=== PATIENT | male | born 1950 | race Caucasian/White ===

== ENCOUNTER → 2018-04-28 | Outpatient (CLI) | payer OTHER ==
--- NOTE | 2018-04-30 08:37 | CPEKG ---
Test Reason : PREOP Blood Pressure : / mmHG Vent. Rate : 050 BPM Atrial Rate : 050 BPM P-R Int : 204 ms QRS Dur : 084 ms QT Int : 436 ms P-R-T Axes : 022 -26 022 degrees QTc Int : 398 ms SINUS RHYTHM Confirmed by Eliud Rowe ([id number]) on 04/30/2018 8:37:15 AM Referred By: Confirmed By:Eliud Rowe
== END ==
LOC: FPAT 10:43
PROVIDERS: ATTEND Neurological Surgery
DX: Z01.810 Encounter for preprocedural cardiovascular examination (principal)

== ENCOUNTER 2018-05-13 07:30 | Inpatient (IN) | payer OTHER ==
[2018-04-28 11:15] LABS: PLATELET COUNT 255 10^3/uL (150-400)
--- NOTE | 2018-05-13 06:51 | PDHPUP ---
History & Physical Update H&P update statement: This history and physical update is based on an assessment of the patient which was completed after admission or registration (within 24 hours), but prior to the surgery/procedure. H&P update: H&P reviewed & patient examined, no change in patient's condition since H&P completed
[2018-05-13] MEDS ORDERED: ceFAZolin 2 GM/DEXTROSE 100 ML IV ONE (10:41)
[2018-05-13] MEDS ORDERED: GABAPENTIN 300 MG CAP PO ONE (10:41)
[2018-05-13] MEDS ORDERED: ACETAMINOPHEN 500 MG TAB PO ONE (10:41)
[2018-05-13] MEDS ORDERED: LIDOCAINE 1% 2 ML INJ ID PRN (10:42)
[2018-05-13] MEDS ORDERED: LR 1,000 ML IV ONE (10:42)
[2018-05-13] MEDS ORDERED: EPINEPHrine 1 MG/ML INJ ONE (11:56)
[2018-05-13] MEDS ORDERED: BACITRACIN 50,000 UNITS/10 ML SYR IRR ONE (11:56)
[2018-05-13] MEDS ORDERED: THROMBIN (BOVINE) 5,000 UNIT VIAL TP ONE (11:56)
[2018-05-13] MEDS ORDERED: CHLORHEXIDINE GLUC HIBICLENS 118 ML BTL TP ONE (11:56)
[2018-05-13] MEDS ORDERED: BUPIVACAINE 0.25% 30 ML SDV ONE (11:56)
[2018-05-13] MEDS ORDERED: MIDAZOLAM 2 MG/2 ML VIAL IVP ONE (12:36)
[2018-05-13] MEDS ORDERED: MIDAZOLAM 2 MG/2 ML VIAL ONE (12:36)
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
[2018-05-13] MEDS ORDERED: fentaNYL 100 MCG/2 ML INJ ONE ×3 (12:39→16:30)
[2018-05-13] MEDS ORDERED: ROCURONIUM 50 MG/5 ML VIAL ONE (12:39)
[2018-05-13] MEDS ORDERED: HYDROmorphONE/DILAUDID 2 MG/ML INJ ONE (12:39)
[2018-05-13] MEDS ORDERED: PROPOFOL 200 MG/20 ML VIAL ONE (12:40)
[2018-05-13] MEDS ORDERED: ALBUTEROL 60 PUFFS/8 GM MDI IH PRN (12:41)
[2018-05-13] MEDS ORDERED: CETIRIZINE 10 MG TAB PO PRN (12:41)
[2018-05-13] MEDS ORDERED: FLUTICASONE HFA 220 MCG MDI IH PRN (12:41)
[2018-05-13] MEDS ORDERED: POLYETHYLENE GLYCOL 3350 17 GM PKT PO PRN (12:43)
[2018-05-13] MEDS ORDERED: MAGNESIUM HYDROXIDE 30 ML UDCUP PO PRN (12:43)
[2018-05-13] MEDS ORDERED: METHOCARBAMOL 750 MG TAB PO PRN (12:43)
[2018-05-13] MEDS ORDERED: oxyCODONE IR 5 MG TAB PO PRN (12:43)
[2018-05-13] MEDS ORDERED: ONDANSETRON DISINTEGRATING 4 MG TAB PO PRN (12:43)
[2018-05-13] MEDS ORDERED: LACTULOSE 20 GM/30 ML UDCUP PO PRN (12:43)
[2018-05-13] MEDS ORDERED: diphenhydrAMINE 25 MG CAP PO PRN (12:43)
[2018-05-13] MEDS ORDERED: BISACODYL 10 MG SUPP PR PRN (12:43)
[2018-05-13] MEDS ORDERED: ONDANSETRON 4 MG/2 ML VIAL IVP PRN ×2 (12:43→14:12)
[2018-05-13] MEDS ORDERED: BUPIVACAINE 0.5% 30 ML SDV ONE (13:06)
[2018-05-13] MEDS ORDERED: MEPERIDINE 25 MG/0.5 ML AMP IVP PRN (14:12)
[2018-05-13] MEDS ORDERED: DIAZEPAM 5 MG/ML 1 ML SYR IVP PRN (14:12)
[2018-05-13] MEDS ORDERED: HYDROmorphONE/DILAUDID 2 MG/ML INJ IVP PRN (14:12)
[2018-05-13] MEDS ORDERED: PROMETHAZINE HCL 25 MG/ML INJ IVP PRN (14:12)
[2018-05-13] MEDS ORDERED: HYDROCODONE/APAP 5/325 TAB PO PRN (14:12)
[2018-05-13] MEDS ORDERED: NALOXONE HCL 0.4 MG/ML INJ IVP PRN (14:12)
--- NOTE | 2018-05-13 14:31 | PDMN ---
Medical Necessity [place] [facility] [place] for pt > 65yrs. OP: ACDF C3-4, C4-5
[2018-05-13] MEDS ORDERED: ONDANSETRON 4 MG/2 ML VIAL ONE (16:11)
[2018-05-13] MEDS ORDERED: DEXAMETHASONE 4 MG/ML VIAL ONE (16:11)
[2018-05-13] MEDS ORDERED: ePHEDrine SULFATE 25 MG/5 ML SYR ONE (16:11)
--- NOTE | 2018-05-13 16:25 | POSTANESTH ---
Post Anesthetic Evaluation Cardiovascular Status: Normal, Stable Respiratory Status: Normal, Stable Level of Consciousness/Mental Status: Can Participate in Eval Pain Control: Adequate, Prn Tx Ordered Nausea/Vomiting Control: Adequate, Prn Tx Ordered Complications Possibly Related to Anesthesia: None Noted
--- NOTE | 2018-05-13 16:25 | POSTOPPROG ---
Post Op Note Date of Operation: 05/13/18 Surgeon: Nicole Casas Machine Pie Maker: BJORN Wright Anesthesiologist: Manuel Anesthesia: GET(General Endotracheal), Local (Specify) Pre-op Diagnosis: cervical stenosis Post-op Diagnosis: cervical stenosis C34 and C45 Indication: myelopathy, stenosis Procedure: ACDF C3-C5 Findings: none Inf/Abcess present in the surg proc area at time of surgery?: No Depth: Deep Incisional (Fascial) EBL: 50-100 Total fluids administered: see anesthesia record Complications: none
--- NOTE | 2018-05-13 16:29 | SOAPPROG ---
SOAP Progress Note Assessment/Plan: Post Op Visit: S: Awake and alert. NAD. Pt with expected neck pain O: AFVSS/PERRLA/EOMI no droop CN 2-12 grossly intact +lt touch 5/5 BUE/BLE = CDI neck soft and supple A/P: 68 yo male that is s/p ACDF C3-C5 -PT/OT/ST -collar as directed -pt seen by Dr Casas as well -call with any questions or concerns -xrays in am 05/13/18 16:29 Objective: Vital Signs Temp Pulse Resp BP Pulse Ox 36.4 C 53 L 9 L 150/90 H 97 05/13/18 16:15 05/13/18 12:37 05/13/18 16:21 05/13/18 16:21 05/13/18 16:21 Laboratory Results 04/28/18 11:02 ICD10 Worksheet Patient Problems: Problems Problem Status Onset Arthrodesis status Acute Cervical spinal stenosis Acute Neck pain Acute - ICD10 Problem Qualifiers (1) Neck pain (2) Cervical spinal stenosis (3) Arthrodesis status
[2018-05-13] MEDS: fentaNYL 100 MCG/2 ML INJ IVP PRN ×2 (16:32→16:43)
[2018-05-13] MEDS ORDERED: oxyCODONE IR 5 MG TAB ONE (16:35)
[2018-05-13] MEDS: HYDROmorphONE/DILAUDID 1 MG/ML INJ IVP PRN (17:09)
[2018-05-13] MEDS: NS 1,000 ML IV SCH (17:10)
[2018-05-13] MEDS: GABAPENTIN 300 MG CAP PO SCH ×2 (19:08→21:31)
[2018-05-13] MEDS: ACETAMINOPHEN 500 MG TAB PO SCH ×2 (19:08→21:31)
[2018-05-13] MEDS: FAMOTIDINE 20 MG TAB PO SCH (21:31)
[2018-05-13] MEDS: SENNOSIDES/DOCUSATE SODIUM TAB PO SCH (21:31)
[2018-05-13] MEDS: ATORVASTATIN CALCIUM 40 MG TAB PO SCH (21:31)
[2018-05-13] MEDS: ceFAZolin 2 GM/DEXTROSE 100 ML IV SCH (21:57)
[2018-05-14] MEDS: HYDROmorphONE/DILAUDID 1 MG/ML INJ IVP PRN (03:37)
[2018-05-14] MEDS: ceFAZolin 2 GM/DEXTROSE 100 ML IV SCH (04:06)
[2018-05-14] MEDS: ACETAMINOPHEN 500 MG TAB PO SCH ×3 (05:36→20:43)
[2018-05-14] MEDS: GABAPENTIN 300 MG CAP PO SCH (05:37)
--- NOTE | 2018-05-14 06:11 | GOP ---
DATE OF OPERATION: 05/13/2018 SURGEON: Howie Casas MD NEUROSURGEON: Howie Casas MD TRUSS PULLER HELPER: Tobin Wright PA-C PREOPERATIVE DIAGNOSIS: Cervical stenosis with myelopathy, ataxia. POSTOPERATIVE DIAGNOSIS: Cervical stenosis with myelopathy, ataxia. PROCEDURE PERFORMED: Anterior cervical diskectomy with decompression and fusion C3-4, C4-5 (30488, 2 0282); anterior cervical instrumentation C3, C4, C5 (85638); placement of biomechanical intervertebra l device C3-4, C4-5 (80047 x2); microscope; same incision bone graft harvest. FINDINGS: SPECIMENS: None. ESTIMATED BLOOD LOSS: 50 cc. INDICATIONS: The patient is a mature gentleman who I have known for some time who has a long history of spinal stenosis, who became increasingly symptomatic with increasing difficulty with gait. An MR I demonstrated evidence of severe spinal stenosis at C3-4 and moderate to severe stenosis at C4-5, an d I suggested 2-level ACDF. He also had severe disk degenerative diseases at C5-6, C6-7, more mild t o moderate compressive pathology at those levels, but it did not, in my view, warrant surgery. The r isks of adjacent segment disease, pseudoarthrosis, swallowing dysfunction, dysphagia, hoarseness, jose or vascular injury, nerve injury were discussed. He knew he may require additional spine surgery in the future. He knew there was risk of esophageal injury. He wanted to proceed despite the risks. DESCRIPTION OF PROCEDURE: The patient was taken to the operating room, placed in supine position. G eneral anesthesia was begun. A midline shoulder roll was placed. Care was taken to pad all points o f contact. His arms were draped at his sides. He was sterilely prepped and draped in usual fashion. A localizing x-ray was taken. We made a transverse incision on the right side of the neck in the m ost rostral neck crease adjacent to the hyoid bone. The subcutaneous tissue was dissected using Bovi e cautery through the platysma, but we then used a combination of sharp and some blunt dissection med ial to the sternocleidomastoid and lateral to the strap muscles down to the prevertebral space. Ther e was a large amount of connective neurovascular tissue bridging our approach down to this area, and we went caudal to this and easily found the prevertebral space down at the C5-6 level. We really did not have good access to the C3-4, C4-5 space through that approach, but we were forced rostral by th ole neurovascular tissues at about the same level of the hyoid. We then went rostral to this and fou nd another window rostral of all these tissues and entered the prevertebral space relatively straight forward in this location and shot a local localizing x-ray. We then dissected the longus colli musc les off the spine at C3-4, C4-5. We placed a self-retaining tractor, placed distraction pins at C3-4 , distracted at C3-4; and then under the microscope we removed the C3-4 disk and drilled and harveste d subchondral bone for autologous grafting purposes. There was a large posterior bone ridge coming o ff the C3 vertebral body protruding in the canal. We drilled all this away and harvested it for auto logous grafting purposes. We opened the posterior longitudinal ligament, decompressed the thecal sac and the neural foramen on each side, got a great decompression. We chose a 7 mm implant, packed it with bone autograft, inserted at C3-4. We then removed our distraction pin at C4-5, distracted there , and did likewise. We removed the disk, drilled out the cartilaginous endplates. We drilled and newman rvested a large amount of subchondral bone. We opened the PLL, decompressed the thecal sac and the n eural foramen on each side. We then packed our intervertebral device with bony autograft and inserte d it at C4-5. A nice fit was obtained, and shot an x-ray of both of the devices. Motor evoked poten tials were checked; these were stable. We then chose a 41 mm plate; placed a screw at C3, C4, and C5 ; shot an x-ray confirming the position of the plate, and I was very happy with it. We then placed t he remaining screws in the plate and locked them according to company specification and verified this with people in the room. We achieved meticulous hemostasis, shot our final x-ray, and then placed 1 0 cc of the prevertebral study drug into the prevertebral space, and then closed the platysma with in terrupted Vicryl sutures. The skin was reapproximated with interrupted Vicryl sutures. The patient was reversed from anesthesia, extubated, and transferred to recovery room in stable condition. There were no complications. COMPLICATIONS: None. INSTRUMENT USED: [employer]tronic Zevo plate and an anatomic PTC cage, 7 mm cages, and a 41 mm plate. /[id number]/MODL
[2018-05-14] MEDS: NS 1,000 ML IV SCH (06:58)
--- NOTE | 2018-05-14 07:59 | NEUSURGPN ---
Date of Surgery: 05/13/18 Post Op Day: 1 Assessment/Plan: Assessment: 68 yo male that is s/p ACDF C3-4, C4-5 for cervical stenosis with myelopathy POD#1 Plan: -PT/OT/ST -Patient having some difficulty with swallowing, will have ST eval and treat -Wear collar at all times -Post op xrays pending -Patient discussed with Dr Casas who will also see today Please call neurosurgery with any questions/concerns Subjective: Trouble swallowing, sore trap muscles Objective: AxO x3 CN 2-12 grossly intact BUE 5/5, BLE 5/[address] Dressing scant drainage Neuro Check Frequency: per routine Urinary Catheter in Place: No - Physician Discussed Patient with Dr.: Augusto Patient Seen by : Augusto Neurosurgery Physical Exam - Vitals, I&O, Labs I and O 05/13/18 05/14/18 05/15/18 05:59 05:59 05:59 Intake Total 2509 Output Total 655 Balance 1854 Weight 76.9 kg Intake: Oral (ml) 150 IV Intake (ml) 1300 IV Infused (ml) 1059 Ns 1,000 ml @ 75 mls/hr 859 IV CONT [facility] Rx#: [id number] ceFAZolin 2 GM/DEXTROSE 200 100 ml @ 200 mls/hr IV Q8H [facility] Rx#:[id number] Output: Urine (ml) 605 Catheter 605 Urinal 0 Estimated Blood Loss (ml) 50 Other: Intake Quantity No: failed swallow eval Sufficient Output Comment Catheter straight cath Urinal pt will try again soon Bladder Scan Volume (ml) Catheter 500 Urinal 300 Post Void Residual Scan Volume (ml) Catheter 0 Vital Signs Temp Pulse Resp BP Pulse Ox 37.0 C 58 L 16 111/67 96 05/14/18 07:42 05/14/18 07:42 05/14/18 07:42 05/14/18 07:42 05/14/18 07:42 Laboratory Results 04/28/18 11:02 ICD10 Worksheet Patient Problems: Problems Problem Status Onset Arthrodesis status Acute Cervical spinal stenosis Acute Neck pain Acute
[2018-05-14] MEDS ORDERED: methylPREDNISolone SOD SUCC 125 MG/2 ML VIAL IVP STA (08:45)
--- NOTE | 2018-05-14 09:42 | ASMTCASEMG ---
Living Arrangements What is your living Answers: With Spouse arrangement? Who do you live with? Type Of Residence What kind of residence do Answers: House you live in? Discharge Plan Comments Coordination Status Comments Notes: Patient is a 68yo male who is scheduled for a ACDF C3-4, C4-[address] Casas. PT/OT/PBX TEACHER ordered for patient. D/C plan TBD. CM will follow. Date Signed: 05/14/2018 09:41 AM Electronically Signed By:Marsha Patterson LCSW
[2018-05-14] MEDS: FAMOTIDINE 20 MG TAB PO SCH ×2 (11:04→20:43)
[2018-05-14] MEDS: SENNOSIDES/DOCUSATE SODIUM TAB PO SCH ×2 (11:05→20:43)
[2018-05-14] MEDS ORDERED: DIAZEPAM 5 MG/ML 1 ML SYR IVP PRN (11:54)
[2018-05-14] MEDS: ACETAMINOPHEN 650 MG SUPP PR PRN ×2 (12:34→18:28)
[2018-05-14] MEDS ORDERED: NS 1,000 ML IV SCH (14:45)
[2018-05-14] MEDS: ATORVASTATIN CALCIUM 40 MG TAB PO SCH (20:43)
[2018-05-15] MEDS: ACETAMINOPHEN 500 MG TAB PO SCH ×3 (05:05→21:04)
--- NOTE | 2018-05-15 08:56 | NEUSURGPN ---
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 Currently NPO -Patient having some difficulty with swallowing but thinks he is somewhat improved -Wear collar at all times -Post op xrays show stable hardware -Urinary retention - leave solano in for now. Once he can take PO will add flomax -D/w Dr Casas Please call neurosurgery with any questions/concerns Subjective: Pt resting in bed, states he thinks he is swallowing ok but has a lot of saliva/ secretions that are difficult to manage Objective: AAOx3 NAD VSS MAEx4 Motor 5/5 BUE/BLE Incision dressed cdi C collar on +LT Urinary Catheter in Place: Yes Urinary Catheter Indication: Acute Urinary Retention Catheter Insertion Date: 05/14/18 - Physician Discussed Patient with : Augusto Neurosurgery Physical Exam - Vitals, I&O, Labs I and O 05/14/18 05/15/18 05/16/18 05:59 05:59 05:59 Intake Total 2509 3428 Output Total 655 2600 Balance 1854 828 Weight 76.9 kg Intake: Oral (ml) 150 IV Intake (ml) 1300 IV Infused (ml) 1059 3428 Ns 1,000 ml @ 100 mls/hr 2528 IV CONT [facility] Rx#: [id number] Ns 1,000 ml @ 75 mls/hr 859 900 IV CONT [facility] Rx#: [id number] ceFAZolin 2 GM/DEXTROSE 200 100 ml @ 200 mls/hr IV Q8H [facility] Rx#:[id number] Output: Urine (ml) 605 2600 Catheter 605 2600 Urinal 0 Estimated Blood Loss (ml) 50 Other: Intake Quantity No: failed swallow eval No Sufficient Output Comment Catheter straight cath Urinal pt will try again soon Number of Stools Urinal 1 Bladder Scan Volume (ml) Catheter 500 Urinal 300 426 Post Void Residual Scan Volume (ml) Catheter 0 Vital Signs Temp Pulse Resp BP Pulse Ox 37.0 C 67 16 150/80 H 93 05/14/18 19:41 05/14/18 19:41 05/14/18 19:41 05/14/18 19:41 05/14/18 19:41 Laboratory Results 04/28/18 11:02 ICD10 Worksheet Patient Problems: Problems Problem Status Onset Arthrodesis status Acute Cervical spinal stenosis Acute Neck pain Acute
[2018-05-15] MEDS: FAMOTIDINE 20 MG TAB PO SCH ×2 (10:35→21:04)
[2018-05-15] MEDS: TAMSULOSIN HCL 0.4 MG CAP PO SCH (10:35)
[2018-05-15] MEDS: SENNOSIDES/DOCUSATE SODIUM TAB PO SCH ×2 (10:35→21:04)
--- NOTE | 2018-05-15 10:59 | ASMTCMCOM ---
CM Note CM Note Notes: PT and OT evaluated pt. PT is recommending home with supervison from family. OT is recommending home. No CM needs identified at this time. CM will follow for changes. D/C Plan: Anticipate independent Date Signed: 05/15/2018 10:58 AM Electronically Signed By:Roseline Cervantes
--- NOTE | 2018-05-15 11:16 | ASMTCMCOM ---
CM Note CM Note Notes: CM reviewed chart and met with pt for d/c planning. Pt is a 64 y/o femalewho presented to the ED with acute hip pain located in her left hip; she was diagnosed with a femur fracture. Pt has a hx of hypertension and type 2 diabetes. yesterday pt has surgery to repair her fracture. The OT eval is complete and they have recommended SNF Rehab. The pt has not yet been evaluated by PT. Pt would like to go to a rehab facility and shared that [facility] was recommended to her. A referral will be sent to [facility]. Per hospitalist, d/c likely tomorrow. CM to follow. D/C: Anticipate SNF, possibly [facility]. Date Signed: 05/15/2018 11:11 AM Electronically Signed By:Roseline Cervantes
--- NOTE | 2018-05-15 11:18 | ASMTCMCOM ---
CM Note CM Note Notes: Disreguard previous note, incorrect pt. Date Signed: 05/15/2018 11:12 AM Electronically Signed By:Roseline Cervantes
[2018-05-15] MEDS: ATORVASTATIN CALCIUM 40 MG TAB PO SCH (21:02)
[2018-05-16] MEDS: ACETAMINOPHEN 500 MG TAB PO SCH (05:04)
[2018-05-16 08:16] VITALS: BP 125/83
[2018-05-16] MEDS: SENNOSIDES/DOCUSATE SODIUM TAB PO SCH (08:58)
[2018-05-16] MEDS: TAMSULOSIN HCL 0.4 MG CAP PO SCH (08:58)
[2018-05-16] MEDS: FAMOTIDINE 20 MG TAB PO SCH (08:58)
[2018-05-16] MEDS ORDERED: ENOXAPARIN 40 MG/0.4 ML SYR SC SCH (09:00)
--- NOTE | 2018-05-16 09:12 | NEUSURGPN ---
Assessment/Plan: Assessment: 68 yo male that is s/p ACDF C3-4, C4-5 for cervical stenosis with myelopathy POD#3 Plan: -PT/OT/ST - pt tolerating soft diet -Patient having some difficulty with swallowing but thinks he is somewhat improved - still c/o increased saliva/secretins -Wear collar at all times -Post op xrays show stable hardware -Urinary retention - On Flomax. DC solano. If able to urinate will dc home with 2 addt'l days of Flomax. If unable to void will need to replace solano and see urology as outpatient -Work towards dc to home today pending urinary issues -Pt and his were in agreement and understanding of the plan Please call neurosurgery with any questions/concerns Subjective: Pt resting in chair, eating breakfast. Still has a lot of secretions but tolerating soft foods Objective: AAOx3 NAD VSS MAEx4 Motor 5/5 BUE C collar on +LT Urinary Catheter in Place: Yes Urinary Catheter Indication: Other (Use Comment) (to be removed today) Catheter Insertion Date: 05/14/18 Neurosurgery Physical Exam - Vitals, I&O, Labs I and O 05/15/18 05/16/18 05/17/18 05:59 05:59 05:59 Intake Total 3428 425 Output Total 2600 1900 Balance 828 -1475 Intake: Oral (ml) 425 IV Infused (ml) 3428 Ns 1,000 ml @ 100 mls/hr 2528 IV CONT [facility] Rx#: [id number] Ns 1,000 ml @ 75 mls/hr 900 IV CONT [facility] Rx#: [id number] Output: Urine (ml) 2600 1900 Catheter 2600 1900 Other: Intake Quantity No Sufficient Number of Stools Urinal 1 Bladder Scan Volume (ml) Urinal 426 Vital Signs Temp Pulse Resp BP Pulse Ox 37.1 C 55 L 16 125/83 H 92 05/16/18 08:00 05/16/18 08:00 05/16/18 08:00 05/16/18 08:00 05/16/18 08:00 Laboratory Results 04/28/18 11:02 ICD10 Worksheet Patient Problems: Problems Problem Status Onset Arthrodesis status Acute Cervical spinal stenosis Acute Neck pain Acute
== END 2018-05-16 12:44 | disposition home or self-care (01) | DRG 472 ==
LOC: F3E 10:33 → F2N 16:58 → F3N 05-14 21:01
PROVIDERS: ADMIT Neurological Surgery; ATTEND Neurological Surgery
PROC: 0RT30ZZ Resection of Cervical Vertebral Disc, Open Approach (ICD-10-PCS; principal; 2018-05-13 12:15)
PROC: 01N10ZZ Release Cervical Nerve, Open Approach (ICD-10-PCS; principal; 2018-05-13 12:15)
PROC: 0PB30ZZ Excision of Cervical Vertebra, Open Approach (ICD-10-PCS; principal; 2018-05-13 12:15)
PROC: 0RG20A0 Fusion of 2 or more Cervical Vertebral Joints with Interbody Fusion Device, Anterior Approach, Anterior Column, Open Approach (ICD-10-PCS; principal; 2018-05-13 12:15)
DX: M50.01 Cervical disc disorder with myelopathy, high cervical region (principal); M50.021 Cervical disc disorder at C4-C5 level with myelopathy; M47.12 Other spondylosis with myelopathy, cervical region
CPT/HCPCS: 92526-GN; 92610-GN; 97116-GP; 97161-GP; 97165-GO; C1713; G8987-GO-CI; G8988-GO-CH; G8989-GO-CI; J0171; J0690; J1100; J1170; J1650; J2250; J2270; J2405; J2704; J2930; J3010; J3360

== ENCOUNTER → 2018-07-20 | Outpatient (CLI) | payer OTHER | LOC: FIMAGING 15:33 | PROVIDERS: ATTEND Internal Medicine | DX: R05 Cough (principal) ==

== ENCOUNTER → 2018-10-13 | Outpatient (CLI) | payer OTHER | LOC: FIMAGING 09:14 | PROVIDERS: ATTEND Physician Assistant | DX: J98.09 Other diseases of bronchus, not elsewhere classified (principal) ==